=== PATIENT | male | born 1950 | race Caucasian/White ===

== ENCOUNTER 2019-04-12 19:32 | Inpatient (IN) | payer MEDICARE, BC ==
--- OUTSIDE RECORDS SUMMARY | 2019-04-12 23:32 | XMS REPORT | Summary of Care ---
:1950 Author Organization [facility] Address [address] [facility] [place] [address] Care Team Providers Name Role Phone Daniel Kamara Primary Care Provider Reason for Referral MRI/CAT/PET Scan (Routine) Status Reason Specialty Diagnoses / Procedures Referred By Referred To Contact Contact Authorized Diagnoses Acquired arteriovenous fistula (HCC) Kidney transplant recipient Zonia Florian, Procedures VL UPPER EXTREMITY DUPLEX AVFISTULA RIGHT PLACEMENT ASSISTANT [facility] [place] [address] Reason for Visit Reason Comments Chronic Kidney Disease pt. here re: right arm AV fistula w/ poss. aneurysmal area. c/o pain / ache w/ AVF. thrill & bruit noted. Kidney transplant done in July 2018. Encounter Details Date Type Department Care Team Description 02/27/2019 Office Visit BFS VASCULAR SURGERY Hollis Barros Acquired arteriovenous fistula (HCC) (Primary Dx); 7[address] Darlene Bruce MD Kidney transplant recipient [address] [place] [address] [place] [address] Allergies Active Allergy Reactions Severity Noted Date Comments Augmentin Unknown Reaction 11/05/2012 Keflex Respiratory Reaction 08/13/2015 tounge swelling & rash Penicillins Unknown Reaction 11/05/2012 documented as of this encounter (statuses as of 02/27/2019) Medications Medication Sig Dispensed Refills Start Date End Date Status mycophenolate (CELLCEPT) Take 250 mg by 0 Active 250 MG Oral Cap mouth TWICE DAILY. Tacrolimus (ENVARSUS XR) Take 2 Tabs by 0 Active 1 MG Oral TABLET SR 24 mouth TWICE HR DAILY. predniSONE (DELTASONE) 5 Take 5 mg by 0 Active MG Oral Tab mouth DAILY. Aspirin 81 MG Oral Tab Take 81 mg by 0 Active mouth. Sulfamethoxazole-Trimeth Take 0.5 Tabs by 0 Active oprim mouth THREE (SULFAMETHOXAZOLE-TMP DS TIMES PER WEEK. PO) Omeprazole 20 MG Oral Take by mouth 0 Active Tablet Delayed Release DAILY. Dispersible docusate sodium (COLACE) Take 100 mg by 0 Active 100 MG Oral Cap mouth TWICE DAILY. [place]-3 1000 MG Oral Cap Take by mouth 0 Active DAILY. doxycycline (VIBRAMYCIN) Take 100 mg by 20 Tab 0 02/22/2019 Active 100 MG Oral Tab mouth TWICE DAILY. documented as of this encounter (statuses as of 02/27/2019) Active Problems Problem Noted Date Renal failure 11/07/2012 Chest pain 11/05/2012 HTN (hypertension) 11/05/2012 Dyslipidemia 11/05/2012 Creatinine elevation 11/05/2012 documented as of this encounter (statuses as of 02/27/2019) Social History Tobacco Use Types Packs/Day Years Used Date Never Smoker 0 Smokeless Tobacco: Never Used Alcohol Use Drinks/Week oz/Week Comments No Sex Assigned at Date Recorded Not on file Job Start Date Occupation Industry Not on file Not on file Not on file Travel History Travel Start Travel End No recent travel history available. documented as of this encounter Last Filed Vital Signs Vital Sign Reading Time Taken Comments Blood Pressure 144/68 02/27/2019 10:16 AM EST Pulse 78 02/27/2019 10:16 AM EST Temperature - - Respiratory Rate - - Oxygen Saturation - - Inhaled Oxygen Concentration - - Weight 93.4 kg (206 lb) 02/27/2019 10:16 AM EST Height 180.3 cm (5' 11") 02/27/2019 10:16 AM EST Body Mass Index 28.73 02/27/2019 10:16 AM EST documented in this encounter Progress Notes Hollis Barros MD - 02/27/2019 10:00 AM EST PATIENT: Wilian Childers : 1950 DATE OF SERVICE: 02/27/2019 When I last saw patient 03/16/2015: Pt s/p 11/07/14: RIGHT BRACHIOCEPHALIC A-V FISTULA AT THE ANTECUBITAL FOSSA. THIS IS A FUNCTIONAL SIDE TO SIDE ANASTOMOSIS WITH FLOW THROUGH THE CEPHALIC VEIN. I SACRIFICED THE BASILIC VEIN AND DID AN END TO END OF BASILIC VEIN TO BRACHIAL ARTERY. OP Findings: Good size cephalic vein and brachial artery. I sacrificed the basilic vein and did an end of vein to side of artery anastomosis. There were no valves in that short segment of basilic vein so that flow went through the basilic and then up the arm through the cephalic vein and down the arm through the cephalic vein in the forearm. At the conclusion there was a good thrill in the AVF and normal palpable radial pulse with triphasic radial and ulnar dopplers .....He does note mild to moderate swelling of the arm which he wonders if it will improve with removal of the TDC and he notes that digits 3 through 5 get pale and numb sometimes in the cold. ..... It is intermittent and not constant. ...... 2+ right radial pulse, good thrill in AVF, mild to moderate swelling of the arm. 03/16/15 ultrasound of the right arm fistula indicates Good volume flow (> 1000) with no evidence of stenosis. ...... Impression/plan: The mild to moderate swelling may be relieved by removal of the same sided TDC. He has slight arterial steal with intermittent coldness of half the digits of the hand. Today patient notes that he has intermittent swelling of his right hand-- sometimes it's significant, other times much less so. The discoloration of three fingers of the hand is rare. C/o right arm shaking with eating for years , even prior to the fistula being placed. Also has some shaking in left arm but not as bad. No fever or chills. He reports the transplant team recommends not ligating fistula for 1 year s/p transplant. He had a kidney transplant in July 2018, and on 02/22/19: BUN/Cr 21/1.4 with eGFR 50 Seen in ER on 02/22/19 for swelling and redness right arm: 68-y.o.immunocompromised male with PMHx significant for ESRD s/p kidney transplant 08/18/18 (tacrolimus + Cellcept therapy), HTN, skin CA, GERD and RUE AV fistula placed 11/07/14 presenting ambulatory [facility] ED with c/o worsening redness and RUE swelling since yesterday ..... 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 Surgical consultation is recommended Patient was begun on Doxycycline for ten days for cellulitis. Exam: fistula is aneurysmal, skin quality over fistula intact with no erythema Duplex of fistula: widely patent, aneurysmal area present with thrombus seen, volume flow 1784 mL/min Impression/plan: Fistula patent. Aneurysmal area intact with no s/s of infection. Finish course of antibiotic treatment. Follow up in 6 months for recheck or sooner if other problems arise. Will discuss ligation of fistula at that time. Author: Hollis Barros MD, RVT, FACS Section of Vascular Surgery 02/27/2019 10:09 documented in this encounter Plan of Treatment Date Type Specialty Care Team Description 09/04/2019 Office Visit Vascular Surgery Hollis Barros MD [address] [address] [phone] Name Type Priority Associated Diagnoses Order Schedule VL UPPER EXTREMITY Imaging Routine Acquired arteriovenous Expected: DUPLEX AVFISTULA RIGHT fistula (HCC) 02/27/2019, Expires: Kidney transplant 04/27/2020 recipient Health Maintenance Due Date Last Done Comments MEDICARE ANNUAL WELLNESS VISIT 1950 DEPRESSION SCREENING 1962 HIV SCREENING 1965 HEPATITIS C SCREENING 1990 Colonoscopy 2000 ZOSTER IMMUNIZATION SERIES (1 2000 of 2) LIPID DISORDER SCREENING 11/06/2013 11/06/2012 FALL RISK ASSESSMENT 08/12/2015 PNEUMOCOCCAL 65+YRS (1 of 2 - 08/12/2015 PCV13) INFLUENZA VACCINE (#1) 2018 DIABETES SCREENING 02/23/2020 02/22/2019, 07/19/2013 HPV IMMUNIZATION SERIES Aged Out No longer eligible based on patient's age to complete this topic MENINGOCOCCAL VACCINE IMM Aged Out No longer eligible based on patient's age to complete this topic documented as of this encounter Results Not on filedocumented in this encounter Visit Diagnoses Diagnosis Acquired arteriovenous fistula (HCC) - Primary Arteriovenous fistula, acquired Kidney transplant recipient documented in this encounter Insurance Payer Benefit Plan / Subscriber ID Effective Dates Phone Address Type Group [employer] xxxxxxxxxxxx 2015-Present [employer] MEDICARE MEDICARE PART A & xxxxxxxxxxx 2014-Present Medicare B Guarantor Name Account Type Relation to Date of Phone Billing Patient Address Wilian Childers Personal/Family 1950 [phone] [address] ([address]) [id number] [place] (Work) [id number] documented as of this encounter
--- OUTSIDE RECORDS SUMMARY | 2019-04-12 23:33 | XMS REPORT | Summary of Care ---
:1950 Author Organization [facility] Address [address] [place] [place] [address] Care Team Providers Name Role Phone Daniel Kamara DO Primary Care Provider Reason for Visit Reason Comments Edema right arm fistula sweling Encounter Details Date Type Department Care Team Description 02/22/2019 Emergency [facility] Emergency FullerLatasha MD [address] [place], [place] [id number] Emergency Department Yolie Galvan PA [address] [place] [address] [phone] [address] [place], [place] [id number] Allergies Active Allergy Reactions Severity Noted Date Comments Augmentin Unknown Reaction 11/05/2012 Keflex Respiratory Reaction 08/13/2015 tounge swelling & rash Penicillins Unknown Reaction 11/05/2012 documented as of this encounter (statuses as of 02/23/2019) Medications Medication Sig Dispensed Refills Start Date End Date Status mycophenolate Take 250 mg 0 Active (CELLCEPT) 250 MG by mouth Oral Cap TWICE DAILY. Tacrolimus (ENVARSUS Take by 0 Active XR) 1 MG Oral TABLET mouth. SR 24 HR predniSONE Take 5 mg by 0 Active (DELTASONE) 5 MG mouth DAILY. Oral Tab Aspirin 81 MG Oral Take 81 mg 0 Active Tab by mouth. Sulfamethoxazole-Tri Take 0.5 0 Active methoprim Tabs by (SULFAMETHOXAZOLE-TM mouth THREE P DS PO) TIMES PER WEEK. Omeprazole 20 MG Take by 0 Active Oral Tablet Delayed mouth. Release Dispersible docusate sodium Take 100 mg 0 Active (COLACE) 100 MG Oral by mouth Cap TWICE DAILY. [place]-3 1000 MG Oral Take by 0 Active Cap mouth. doxycycline Take 100 mg 20 Tab 0 02/22/2019 Active (VIBRAMYCIN) 100 MG by mouth Oral Tab TWICE DAILY. Aspirin 81 MG Oral Take 81 mg 0 02/22/2019 Discontinued Tab by mouth DAILY. amLodipine (NORVASC) Take 5 mg by 0 02/22/2019 Discontinued 5 MG Oral Tab mouth EVERY EVENING. Magnesium 400 MG Take 400 mg 0 02/22/2019 Discontinued Oral Tab by mouth TWICE DAILY. metoprolol tartrate Take 25 mg 0 02/22/2019 Discontinued (LOPRESSOR) 25 mg by mouth TWICE DAILY. Calcium Carbonate Take by 0 02/22/2019 Discontinued Antacid (TUMS PO) mouth DAILY. [place]-3 Fatty Acids Take by 0 02/22/2019 Discontinued (FISH OIL) 1000 MG mouth DAILY. Oral Cap Lansoprazole 30 MG Take by 0 02/22/2019 Discontinued Oral TABLET mouth DISPERSIBLE NEEDED. sevelamer carbonate Take 800 mg 0 02/22/2019 Discontinued (RENVELA) 800 MG by mouth Oral Tab THREE TIMES DAILY WITH MEALS. documented as of this encounter (statuses as of 02/23/2019) Active Problems Problem Noted Date Renal failure 11/07/2012 Chest pain 11/05/2012 HTN (hypertension) 11/05/2012 Dyslipidemia 11/05/2012 Creatinine elevation 11/05/2012 documented as of this encounter (statuses as of 02/23/2019) Social History Tobacco Use Types Packs/Day Years Used Date Never Smoker Alcohol Use Drinks/Week oz/Week Comments No Sex Assigned at Date Recorded Not on file Job Start Date Occupation Industry Not on file Not on file Not on file Travel History Travel Start Travel End No recent travel history available. documented as of this encounter Last Filed Vital Signs Vital Sign Reading Time Taken Comments Blood Pressure 142/72 02/22/2019 3:20 PM EST Pulse 69 02/22/2019 3:20 PM EST Temperature 37.1 02/22/2019 9:57 AM EST C (98.7 F) Respiratory Rate 20 02/22/2019 3:20 PM EST Oxygen Saturation 97% 02/22/2019 3:20 PM EST Inhaled Oxygen Concentration - - Weight - - Height - - Body Mass Index - - documented in this encounter Discharge Instructions AttachmentsThe following attachments cannot be sent through Care Everywhere.Cellulitis (Skin Infection) Discharge Instructions, Adult (Frisian) Arteriovenous Fistula for Dialysis Discharge Instructions (Frisian)documented in this encounter Plan of Treatment Health Maintenance Due Date Last Done Comments DEPRESSION SCREENING 1962 HIV SCREENING 1965 HEPATITIS C SCREENING 1990 Colonoscopy 2000 ZOSTER IMMUNIZATION SERIES (1 of 2) 2000 FALL RISK ASSESSMENT 08/12/2015 PNEUMOCOCCAL 65+YRS (1 of 2 - 08/12/2015 PCV13) INFLUENZA VACCINE (#1) 2018 HPV IMMUNIZATION SERIES Aged Out No longer eligible based on patient's age to complete this topic MENINGOCOCCAL VACCINE IMM Aged Out No longer eligible based on patient's age to complete this topic documented as of this encounter Procedures Procedure Name Priority Date/Time Associated Comments Diagnosis VL UPPER EXTREMITY Routine 02/22/2019 1:10 Results for this DUPLEX VEINS RIGHT PM EST procedure are in the results section. CBC WITH DIFFERENTIAL STAT 02/22/2019 10:15 Results for this AM EST procedure are in the results section. C-REACTIVE PROTEIN STAT 02/22/2019 10:15 Results for this AM EST procedure are in the results section. COMPREHENSIVE METABOLIC STAT 02/22/2019 10:15 Results for this PANEL AM EST procedure are in the results section. PARTIAL THROMBOPLASTIN STAT 02/22/2019 10:15 Results for this TIME AM EST procedure are in the results section. documented in this encounter Results VL UPPER EXTREMITY DUPLEX VEINS RIGHT (02/22/2019 1:10 PM EST) Specimen Impressions Performed At 1. No evidence of a deep vein thrombosis from the right internal jugular through brachial veins. 2. 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 Surgical consultation is recommended. Further evaluation with a fistulogram could be performed as indicated. THIS DOCUMENT HAS BEEN ELECTRONICALLY SIGNED BY YOANA REICH MD Narrative Performed At PROCEDURE INFORMATION: Exam: US Duplex Right Upper Extremity Veins, Limited Exam date and time: 02/22/2019 12:30 PM Age: 68 years old Clinical history: Indication for study->+r/w/e; HX av fistula rue TECHNIQUE: Imaging protocol: Real-time Duplex ultrasound of the Right Upper Extremity with 2-D saravia scale, color Doppler flow and spectral waveform analysis with image documentation. Limited exam focused on the right upper extremity veins. COMPARISON: US VL UPPER EXTREMITY DUPLEX VEINS RIGHT 08/13/2015 12:55 PM FINDINGS: Right deep veins: The right internal jugular, subclavian, axillary, and brachial veins are patent. Vascular flow is seen within these veins. cephalic and basilic veins are patent. In the region of the palpable abnormality is a 7.3 x 3.4 x 2.8 cm vessel. Vascular flow is seen within this vessel however there is nonocclusive thrombus. Venous appearing Doppler flow is seen within this finding. Procedure Note Interface, Rad Results - 02/22/2019 1:54 PM EST PROCEDURE INFORMATION: Exam: US Duplex Right Upper Extremity Veins, Limited Exam date and time: 02/22/2019 12:30 PM Age: 68 years old Clinical history: Indication for study->+r/w/e; HX av fistula rue TECHNIQUE: Imaging protocol: Real-time Duplex ultrasound of the Right Upper Extremity with 2-D saravia scale, color Doppler flow and spectral waveform analysis with image documentation. Limited exam focused on the right upper extremity veins. COMPARISON: US VL UPPER EXTREMITY DUPLEX VEINS RIGHT 08/13/2015 12:55 PM FINDINGS: Right deep veins: The right internal jugular, subclavian, axillary, and brachial veins are patent. Vascular flow is seen within these veins. cephalic and basilic veins are patent. In the region of the palpable abnormality is a 7.3 x 3.4 x 2.8 cm vessel. Vascular flow is seen within this vessel however there is nonocclusive thrombus. Venous appearing Doppler flow is seen within this finding. IMPRESSION 1. No evidence of a deep vein thrombosis from the right internal jugular through brachial veins. 2. 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 Surgical consultation is recommended. Further evaluation with a fistulogram could be performed as indicated. THIS DOCUMENT HAS BEEN ELECTRONICALLY SIGNED BY YOANA REICH MD C-REACTIVE PROTEIN (02/22/2019 10:15 AM EST) C-Reactive Protein 1.00 (H) <1.00 mg/dl [facility] Specimen Blood - Blood specimen (specimen) Performing Organization Address City/State/Zipcode Phone Number [facility] [address] [place] [address] COMPREHENSIVE METABOLIC PANEL (02/22/2019 10:15 AM EST) Sodium 137 134 - 145 mmol/L [facility] Potassium 4.6 3.5 - 5.1 mmol/L [facility] Chloride 102 98 - 107 mmol/L [facility] CO2 28 22 - 30 mmol/L [facility] Calcium 10.6 (H) 8.3 - 10.1 mg/dl [facility] Albumin 4.1 3.5 - 5.0 g/dl [facility] BUN 21 (H) 9 - 20 mg/dl [facility] Creatinine 1.4 0.8 - 1.5 mg/dl [facility] Glucose 103 (H) 70 - 99 mg/dl [facility] Total Protein 7.3 6.3 - 8.2 g/dl [facility] Total Bilirubin 1.3 (H) 0.0 - 1.1 MG/DL [facility] AST 32 17 - 59 U/L [facility] ALT 25 21 - 72 U/L [facility] Alkaline 82 40 - 150 U/L [facility] eGFR 50 See Interpretation [place] Comment: Below ml/min/1.73ml [facility] Estimated GFR Interpretation: Sq LABORATORY Above 60ml/min/1.73m2 = Normal Renal Function 30-59 ml/min/1.73m2 = Stage 3 Chronic Kidney Disease 15-29 ml/min/1.73m2 = Stage 4 Chronic Kidney Disease Less than 15 ml/min/1.73m2 = Stage 5 Chronic Kidney Disease The GFR value is calculated using the Modification of Diet in Renal Disease ( MDRD) Study Equation which can be found at: https://www.kidney.org/content/ewpp-huqke-ncbeomor BUN/Creatinine 15 6 - 22 RATIO [facility] Anion Gap 7 3 - 11 mmol/L [facility] A/G Ratio 1.3 0.8 - 2.0 ratio [facility] Specimen Blood - Blood specimen (specimen) Performing Organization Address City[facility] Phone Number [facility] [address] [place] [address] PARTIAL THROMBOPLASTIN TIME (02/22/2019 10:15 AM EST) PTT 26.9Comment: 21.3 - 35.9 SEC [facility] Reference range LABORATORY updated 01/15/2019. Specimen Blood - Blood specimen (specimen) Performing Organization Address [facility] Phone Number [facility] [address] [place] [address] CBC WITH DIFFERENTIAL (02/22/2019 10:15 AM EST) WBC Count 6.62 4.23 - 9.07 K/uL [facility] RBC Count 4.38 4.30 - 5.89 M/UL [facility] Hemoglobin 14.8 13.7 - 17.5 g/dL [facility] Hematocrit 42.7 40.1 - 51.0 % [facility] MCV 97.5 (H) 79.0 - 92.2 FL [facility] MCH 33.8 (H) 25.7 - 32.[address] [facility] MCHC 34.7 32.3 - 36.5 g/dL [facility] Platelet Count 177 163 - 337 K/uL [facility] MPV 9.3 (L) 9.4 - 12.[address] [facility] RDW 13.2 11.6 - 14.4 % [facility] Neutrophil % 73.9 (H) 34.0 - 67.9 % [facility] Lymphocyte % 12.5 (L) 21.8 - 53.1 % [facility] Monocyte % 10.3 5.3 - 12.2 % [facility] Eosinophil % 2.1 0.8 - 7.0 % [facility] Basophil % 0.9 0.2 - 1.2 % [facility] Neutrophil # 4.89 1.78 - 5.38 K/UL [facility] Lymphocyte # 0.83 (L) 1.32 - 3.57 K/UL [facility] Monocyte # 0.68 0.30 - 0.82 K/UL [facility] Eosinophil # 0.14 0.04 - 0.54 K/UL [facility] Basophil # 0.06 0.01 - 0.08 K/UL [facility] Immature Gran % 0.3 0.0 - 0.4 % [facility] Immature Gran # 0.02 0.00 - 0.03 K/uL [facility] Specimen Blood - Blood specimen (specimen) Performing Organization Address City/State/Zipcode Phone Number [facility] [address] [place] [address] documented in this encounter Visit Diagnoses Diagnosis Aneurysm of arteriovenous dialysis fistula, initial encounter (HCC) - Primary Cellulitis of right upper extremity Cellulitis and abscess of upper arm and forearm documented in this encounter Administered Medications Medication Order MAR Action Action Date Dose Rate Site MOXIfloxacin (AVELOX) IV premix New Bag 02/22/2019 11:32 AM EST 400 mg 400 mg 400 mg, Intravenous, X1, 1 dose, First dose on Mon02/22/19 at 1155 vancomycin (VANCOCIN) IV mixture 1,500 New Bag 02/22/2019 1:15 PM EST 1, 500 mg mg 1,500 mg, Intravenous, X1, 1 dose, First dose on Mon02/22/19 at 1155, Typical Dose = 15 mg/kg As approved by the Infectious Disease Department, the Antimicrobial Stewardship Subcommittee, the Pharmacy and Therapeutics Committee, the [facility] Clinical Quality Committee and the [facility] ([facility], , [facility]), Vancomycin and Aminoglycoside doses will not be held while awaiting a antibiotic serum levels (peak, random, trough) unless a provider specifically places a hold order for the medication., documented in this encounter Insurance Payer Benefit Plan / Subscriber ID Effective Dates Phone Address Type Group MEDICARE MEDICARE PART A & xxxxxxxxxx 2014-Present Medicare B [employer] [facility] xxxxxxxxxxxx 2015-Present [employer] Guarantor Name Account Type Relation to Date of Phone Billing Patient Address Wilian Childers Personal/Family 1950 [phone] [address] (Home) [id number] [place] (Work) [id number] documented as of this encounter
[2019-04-12] MEDS ORDERED: Heparin DRIP 25,000 UNITS(*) 25,000 UNITS/500 ML BAG IV SCH (23:45)
[2019-04-12] MEDS ORDERED: Atorvastatin* 80 MG TAB PO ONE (23:56)
[2019-04-12] MEDS ORDERED: Aspirin EC TAB* 81 MG TAB.EC PO ONE (23:56)
[2019-04-13] MEDS ORDERED: Nitroglycerin TAB 0.4 MG* 0.4 MG TAB SL PRN (00:16)
[2019-04-13 00:31] LABS: Anion Gap 10 mmol/L (2-11); BUN/Creatinine Ratio 14.3 (8-20); Blood Urea Nitrogen 21 mg/dL (6-24); CO2 Carbon Dioxide 22 mmol/L (22-32); Calcium 10.3 mg/dL (8.6-10.3); Chloride 104 mmol/L (101-111); EGFR African American 57.6 (>60); EGFR Non-African American 47.6 (>60); Glucose 107 mg/dL (70-100); Magnesium 1.6 mg/dL (1.9-2.7); Potassium 4.1 mmol/L (3.5-5.0); Sodium 136 mmol/L (135-145)
[2019-04-13] MEDS ORDERED: Magnesium Sulfate 2 GM IV* 2 GM/50 ML BAG IVPB ONE (00:34)
[2019-04-13 00:35] LABS: Troponin I 0.09 ng/mL (<0.03)
[2019-04-13 00:54] LABS: ABS Basophils 0.1 10^3/ul (0-0.2); ABS Eosinophils 0.1 10^3/ul (0-0.6); ABS Monocytes 0.7 10^3/ul (0-0.8); ABS Neutrophils 3.5 10^3/ul (1.5-7.7); Eosinophil % 2.1 %; Hematocrit 43 % (42-52); Hemoglobin 15.1 g/dL (14.0-18.0); Lymphocyte % 19.2 %; Mean Corpuscular HGB Conc 35 g/dL (31-36); Mean Corpuscular Hemoglobin 34 pg (27-31); Mean Corpuscular Volume 96 fL (80-94); Mean Platelet Volume 8.3 fL (7.4-10.4); Nucleated Red Blood Cells % 0.1; Platelet Count 180 10^3/uL (150-450); Red Blood Count 4.49 10^6 /uL (4.18-5.48); Red Cell Distribution Width 14 % (10-15); White Blood Count 5.3 10^3/uL (3.5-10.8)
[2019-04-13] MEDS ORDERED: Heparin VIAL(*) 5000 UNITS/ML VIAL (FIVE THOUSAND) IV SCH (01:00)
--- NOTE | 2019-04-13 01:11 | HP ---
CC: Dr. Daniel Kamara; Dr. Rory Roldan, HISTORY AND PHYSICAL: DATE OF ADMISSION: 04/12/19 PRIMARY CARE PROVIDER: Dr. Daniel Kamara. CHIEF COMPLAINT: Sent from [facility] because of unstable angina, the patient has been having chest pain and shortness of breath. HISTORY OF PRESENT ILLNESS: This is a 68-year-old male with past medical history of hypertension; history of end-stage renal disease, used to be on dialysis, now is status post kidney transplant in July 2018 at the [facility], who now is in our hospital because of unstable angina. The patient was seen at the [facility] Emergency Room because of chest pain and shortness of breath. The patient reports that he has been having on and off episodes of chest pain and dyspnea on exertion for the past 1 week, he reports that the chest pain will last several minutes, relieved by rest, is usually like a pressure like sensation, which would then radiate to the arm and the back associated with shortness of breath with occasional diaphoresis. There is no associated nausea or vomiting. Currently, the patient is chest pain free. The patient was seen in the [facility] and he had blood work, EKG done subsequently, they decided to transfer the patient, they contacted Dr. Mehul Yancey as well as the hospitalist here. The patient was subsequently accepted to our facility and was transferred. Currently, the patient is chest pain free. PAST MEDICAL HISTORY: Includes: 1. Hypertension. 2. History of end-stage renal disease, used to be on dialysis. 3. History of IgA nephropathy. 4. CKD. PAST SURGICAL HISTORY: Kidney transplant in 08/18/18 at the [facility] , right sided, had a right-sided upper arm AV fistula placement. HOME MEDICATIONS: Include: 1. Colace 100 mg b.i.d. 2. CellCept/mycophenolate mofetil 500 mg twice a day. 3. Prednisone 5 mg daily. 4. Coreg 6.25 mg b.i.d. 5. Tacrolimus/Envarsus XR 2 mg daily. 6. Omeprazole 20 mg daily. 7. Marsteller-3 one tab daily. 8. Aspirin 81 mg daily. ALLERGIES: Include PENICILLIN, CLAVULANIC ACID, KEFLEX, AMOXICILLIN. FAMILY HISTORY: Mother: Heart issues, the patient does not know exactly what kind of heart issues. 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 He does not smoke. No alcohol use. REVIEW OF SYSTEMS: The patient does not have any fevers, no chills, no sore throat, no earache, no neck pain. The patient is having dyspnea on exertion, however, reports no cough. Cardiovascular: See HPI. He does not have any abdominal pain. No nausea. No vomiting. No hematuria. No dysuria. No back pain. No arthralgia. No myalgia. No rashes or lesions. No headaches. No focal weakness or numbness. No depression or anxiety. No change in his mood. PHYSICAL EXAMINATION BP: 151/66, HR: 65, RR: 18, O2; 96% on Room Air, Temp: 97.7F GENERAL: This is a well-developed, well-nourished male, lying in bed, in no acute distress. HEENT: Head: Atraumatic, normocephalic. Pupils are equal, round, reactive to light. NECK: Neck is supple with range of motion intact. There is no JVD. No thyromegaly. RESPIRATORY: There is no tachypnea, no use of accessory muscles. LUNGS: Clear without any wheezing, rales, or rhonchi. HEART: There is no chest wall tenderness. Regular rate and rhythm. There is a 2/6 systolic murmur best heard at the left upper sternal border. There are no rubs or gallops. ABDOMEN: Normoactive bowel sounds. Abdomen is soft, nontender, nondistended. EXTREMITIES: There is no lower extremity edema. No calf tenderness. AV fistula noted at the right upper extremity. NEUROLOGIC: The patient is awake, alert, and oriented x3. Tongue is midline with no facial droop. He is moving all 4 extremities without any focal weakness. SKIN: There is a scar noted at the right abdomen region site for his kidney transplant. Warm and dry. DIAGNOSTIC STUDIES/LAB DATA: Labs from our hospital is pending; however, the blood work from [facility] reveals sodium of 139, potassium of 4.6, chloride of 104, bicarb of 26, BUN of 23, creatinine of 1.6, magnesium of 1.5, alkaline phosphatase of 93. Troponin of 0.09, 0.09. BNP of 298. Serum total protein of 7.4, albumin of 2.9, WBC of 7.00, hemoglobin of 15.3, hematocrit of 44.8, RDW of 13.2. The patient had EKGs done over at [facility], one of them, time 04/02/19 at 1407 revealed sinus rhythm with nonspecific ST-T changes and EKG prior to that was done on 09/18/17 at 09:43, which revealed sinus rhythm with nonspecific ST-T changes as well. IMPRESSION AND PLAN: 1. Unstable angina: I will give the patient one dose of aspirin 162 mg, and then resume 81 mg of aspirin daily. I will give one dose of Lipitor 80 mg, followed by daily Lipitor 40 mg. Continue his carvedilol. Start the patient on a heparin drip. We will await a cardiology consultation in the morning, check an echocardiogram as well. We will cycle the troponins as well and get a repeat EKG. LDL was 113 in October 2018. Check A1c. 2. History of kidney transplant: The patient is followed by Dr. Rory Roldan, phone number is [phone]. At this point, we will continue the patient's home dose of prednisone, tacrolimus, and mycophenolate mofetil. I will get a tacrolimus level as well. It should be noted that there was hypomagnesemia noted in the lab work done at [facility]. According to the records I have in front of me, it does not appear that magnesium supplementation was given ; will obtain a repeat magnesium level and treat based on that number. 3. Chronic kidney disease with creatinine of 1.6. We will avoid any nephrotoxic agents. We will follow up repeat blood work as well. At this point , we will monitor closely. The patient does not appear to be dehydrated, so I will avoid giving IV fluids in the setting of possible unstable angina and mildly elevated BNP at the other facility. 4. DVT prophylaxis: The patient will be started on a heparin drip for unstable angina. 5. GI prophylaxis: The patient takes omeprazole, this will be continued as well. [id number]/[facility]PS #: [id number] MTDD
[2019-04-13 07:39] LABS: Troponin I 0.08 ng/mL (<0.03)
[2019-04-13] MEDS: Aspirin EC TAB* 81 MG TAB.EC PO SCH (08:09)
[2019-04-13] MEDS: Carvedilol TAB* 6.25 MG PO SCH ×2 (08:09→20:21)
[2019-04-13] MEDS: Docusate CAP* 100 MG PO SCH ×2 (08:09→20:21)
[2019-04-13] MEDS: MYCOPHENOLATE MOFETIL 250 MG PO SCH ×2 (08:12→20:21)
[2019-04-13] MEDS: TACROLIMUS 1 MG PO SCH (08:13)
[2019-04-13] MEDS: CMCS: OMEGA-3 FATTY ACIDS (NF) 1,000 MG CAP PO SCH (08:13)
[2019-04-13] MEDS: OMEPRAZOLE 20 MG PO SCH (08:14)
[2019-04-13] MEDS: amLODIPine TAB* 5 MG PO SCH (09:20)
--- NOTE | 2019-04-13 13:27 | CONS ---
CC: Dr. Daniel Kamara, [facility]. CARDIOLOGY CONSULTATION: DATE OF CONSULT: 04/13/19 INDICATION FOR CONSULTATION: Crescendo angina HISTORY OF PRESENT ILLNESS: The patient is a 68-year-old gentleman with a history of end-stage renal disease, status post renal transplant in July 2018, history of hypertension, IgA nephropathy, who cam e to the emergency room at [place] because of crescendo angina. The patient states that for the pas t week or so he has been getting bilateral posterior shoulder pain and chest pain with exertion. The patient states that yesterday he was moving around ladders and had the same discomfort, but when he rested, it took about 45 minutes for the discomfort to go away. The patient went home after work, li ed on the couch. He had some of the discomfort in the posterior shoulder areas felt as an achy feeli ng. At that time, he called his regular physician who instructed him to go to the emergency room. Th e patient at the emergency room had no ischemic EKG changes but a minimally elevated troponin level. The patient was transferred to [facility]. I had seen this patient about 2 years ago for preop for his renal transplant. At that time he had an echocardiogram and a stress echocardiogram, which were unremarkable. PAST MEDICAL HISTORY: Significant for hypertension, end-stage renal disease. OUTPATIENT MEDICATIONS: 1. CellCept 500 mg twice a day. 2. Prednisone 5 mg a day. 3. Coreg 6.25 mg a day. 4. Tacrolimus XR 2 mg a day. 5. Omeprazole 20 mg a day. 6. Aspirin 81 mg a day. Currently, the patient is on IV heparin and his other medications have been continued. ALLERGIES: PENICILLIN, CLAVULANIC ACID, KEFLEX, AMOXICILLIN. FAMILY HISTORY: Mother has a history of heart disease. SOCIAL HISTORY: He lives with his . He is a mechanical maintenance foreman. He denies tobacco or alcohol u se. REVIEW OF SYSTEMS: Negative for fevers or chills. Negative for changes in bowel or bladder habits. Negative for change in weight. Other 12-point review is unremarkable. PHYSICAL EXAM: Height is 5 feet 11 inches, weight 211 pounds, temperature 97.8, heart rate is 70, bl ood pressure 149/70, respiratory rate is 16, oxygen saturation 96% on room air. Sclerae anicteric. Oropharynx is pink without erythema. Carotids are 2+ without bruits. JVD is normal. Thyroid is norm al. Cardiac Exam: S1, S2 without any murmurs, rubs, or gallops. Lungs: Clear to auscultation bilat erally. There is no dullness to percussion. Abdomen: Soft, nontender, nondistended with normoactiv e bowel sounds. Extremities: Show no edema. He has 2+ pulses throughout. The patient is awake, al ert, and oriented. He moves all 4 extremities equally. DIAGNOSTIC STUDIES: EKG today shows normal sinus rhythm, 68 beats per minute, nonspecific T-wave abn ormalities. IMPRESSION: This is a 68-year-old gentleman with crescendo angina as described above. The patient d oes have minimally elevated troponin levels. The patient is at high risk for coronary artery disease given his end-stage renal disease. For now, my recommendation is that the patient stay on his heparin for another 24 hours. His other m edications will remain the same. He stays on aspirin 81 mg a day. I do not think any other antiplat elet agents are necessary at this time. The patient will be scheduled for an exercise nuclear stress test on Monday. The patient will also g et an echocardiogram. Further recommendations pending results of his cardiac evaluation. The patien t does have a renal transplant. The patient is at risk of renal problems given if he is to go to [facility] catheterization. This will be discussed with his transplant team. [id number]/[facility] #: [id number]
--- NOTE | 2019-04-13 13:45 | PN ---
Subjective Date of Service: 04/13/19 Interval History: Patient seen today, doing well. no fever. Discussed with Dr. Yancey. Given his chest pain nature, decided to place patient on heparin drip and proceed with stress test on Monday. Pending his stress test and echo will determine if he is candidate for cardiac cath. Patient asked to keep his transplant team updated before proceeding with cardiac cath. Please see documentation by nurse Dena Del Toro regarding his transplant team. Copied for reference purpose only: "pt's kidney transplant in [facility] [address] Roldan. bor [phone]. Ask for Nurse transplant coordinators Magan or Damien and they can help get in touch with Dr. Roldan. " Past Medical History: Unchanged from Admission Objective Active Medications: Amlodipine Besylate (Norvasc Tab*) 2.5 mg PO DAILY [facility] Last Admin: 04/13/19 09:20 Dose: 2.5 mg Aspirin (Aspirin Ec Tab*) 81 mg PO DAILY [facility] Last Admin: 04/13/19 08:09 Dose: 81 mg Atorvastatin Calcium (Lipitor*) 40 mg PO 2100 [facility] Carvedilol (Coreg Tab*) 6.25 mg PO BID [facility] Last Admin: 04/13/19 08:09 Dose: 6.25 mg Docusate Sodium (Colace Cap*) 100 mg PO BID [facility] Last Admin: 04/13/19 08:09 Dose: 100 mg Fish Oil (Fish Oil (Nf)) 1 mg PO DAILY [facility]; Protocol Last Admin: 04/13/19 08:13 Dose: 1 mg Heparin Sodium (Porcine) (Heparin Vial(*)) 0 units IV .PER PROTOCOL [facility] Last Admin: 04/13/19 01:00 Dose: 4,000 units Heparin Sodium/Dextrose (Heparin Drip 25,000 Units(*)) 25,000 units in 500 mls @ 0 mls/hr IV PER RATE [facility]; Protocol Last Admin: 04/13/19 01:02 Dose: 20 mls/hr Mycophenolate Mofetil (Cellcept Cap(*)) 500 mg PO 0800,1999 [facility] Last Admin: 04/13/19 08:12 Dose: 500 mg Nitroglycerin (Nitroglycerin Tab 0.4 Mg*) 0.4 mg SL Q5M PRN PRN Reason: ANGINA Pto: Tacrolimus [ (Envarsus Xr] 1 Mg) 2 mg PO DAILY [facility] Last Admin: 04/13/19 08:13 Dose: 2 mg Omeprazole (Prilosec Cap* (Nf)) 20 mg PO DAILY [facility] Last Admin: 04/13/19 08:14 Dose: 20 mg Prednisone (Deltasone 5 Mg Tab) 5 mg PO DAILY [facility] Last Admin: 04/13/19 08:10 Dose: 5 mg Vital Signs - 8 hr 04/13/19 04/13/19 04/13/19 07:52 08:00 09:21 Temperature 97.8 F Pulse Rate 69 67 Respiratory 16 16 Rate Blood Pressure 178/76 163/70 (mmHg) O2 Sat by Pulse 96 Oximetry 04/13/19 10:55 Temperature 97.7 F Pulse Rate 67 Respiratory 18 Rate Blood Pressure 137/62 (mmHg) O2 Sat by Pulse 98 Oximetry Oxygen Devices in Use Now: None Appearance: awake ,alert. no distress. on heparin drip Eyes: No Scleral Icterus, - - EOMI Ears/Nose/Mouth/Throat: NL Teeth, Lips, Gums, Mucous Membranes Moist Neck: NL Appearance and Movements; NL JVP, Trachea Midline Respiratory: Symmetrical Chest Expansion and Respiratory Effort, Clear to Auscultation Cardiovascular: NL Sounds; No Murmurs; No JVD, No Edema Abdominal: NL Sounds; No Tenderness; No Distention Lymphatic: No Cervical Adenopathy Extremities: No Edema Skin: No Rash or Ulcers, No Nodules or Sclerosis Neurological: Alert and Oriented x 3 Result Diagrams: 04/12/19 23:59 04/12/19 23:59 Assess/Plan/Problems-Billing Assessment: 68 y/o male recent renal transplant in 07/2018 here for chest pain with borderline troponin, required Heparin drip. Transferred from [facility] accepted by Dr. Yancey. - Patient Problems (1) Chest pain Current Visit: Yes Status: Acute Code(s): R07.9 - CHEST PAIN, UNSPECIFIED SNOMED Code(s): 83143656 Comment: - Seen by cardiology Dr. Yancey - Given his cresendo type of chest pain, started on heparin drip. Pain free - Trop peaked at 0.09. No ischemic changes on EKG - Continue coreg 6.25.mg bid - For Echo and Stress test on monday (2) Renal transplant recipient Current Visit: Yes Status: Acute Code(s): Z94.0 - KIDNEY TRANSPLANT STATUS SNOMED Code(s): 688881069 Comment: - On Cellcept and Tacrolimus, prednisone. All continued - The pt's is s/p kidney transplant in 07/2018 at [facility]. Please see documentation by nurse Dena Del Toro on admission for his transplant team informations. ("Dr. Roldan. bor [phone]. Ask for Nurse transplant coordinators Magan or Damien and they can help get in touch with Dr. Roldan.") (3) Hypertension Current Visit: Yes Status: Acute Code(s): I10 - ESSENTIAL (PRIMARY) HYPERTENSION SNOMED Code(s): 99562444 Comment: Continue coreg 6.25 mg bid Added amlodipine 2.5 mg daily given elevated BP this morning (4) IgA nephropathy Current Visit: Yes Status: Acute Code(s): N02.8 - RECURRENT AND PERSISTENT HEMATURIA W OTH MORPHOLOGIC CHANGES SNOMED Code(s): 588584548 Comment: s/p transplant (5) DVT prophylaxis Current Visit: Yes Status: Acute Code(s): Z29.9 - ENCOUNTER FOR PROPHYLACTIC MEASURES, UNSPECIFIED SNOMED Code(s): 757782012 Comment: - Currently on heparin drip
[2019-04-13] MEDS: Atorvastatin* 40 MG TAB PO SCH (20:21)
[2019-04-14 06:41] LABS: Hematocrit 44 % (42-52); Hemoglobin 15.3 g/dL (14.0-18.0); Mean Corpuscular HGB Conc 35 g/dL (31-36); Mean Corpuscular Hemoglobin 34 pg (27-31); Mean Corpuscular Volume 97 fL (80-94); Mean Platelet Volume 8.4 fL (7.4-10.4); Platelet Count 167 10^3/uL (150-450); Red Cell Distribution Width 14 % (10-15); White Blood Count 6.5 10^3/uL (3.5-10.8)
[2019-04-14 06:46] LABS: ABS Eosinophils 0.1 10^3/ul (0-0.6); ABS Lymphocytes 0.9 10^3/ul (1.0-4.8); ABS Monocytes 0.7 10^3/ul (0-0.8); ABS Neutrophils 4.8 10^3/ul (1.5-7.7); Eosinophil % 2.1 %; Lymphocyte % 14.1 %
[2019-04-14 06:48] LABS: BUN/Creatinine Ratio 18.6 (8-20); Calcium 10.1 mg/dL (8.6-10.3); EGFR Non-African American 50.4 (>60); Potassium 4.3 mmol/L (3.5-5.0)
[2019-04-14] MEDS: MYCOPHENOLATE MOFETIL 250 MG PO SCH ×2 (08:01→19:56)
[2019-04-14] MEDS: OMEPRAZOLE 20 MG PO SCH (08:01)
[2019-04-14] MEDS: Docusate CAP* 100 MG PO SCH ×2 (08:01→19:56)
[2019-04-14] MEDS: amLODIPine TAB* 5 MG PO SCH (08:02)
[2019-04-14] MEDS: Carvedilol TAB* 6.25 MG PO SCH ×2 (08:02→19:56)
[2019-04-14] MEDS: Aspirin EC TAB* 81 MG TAB.EC PO SCH (08:02)
[2019-04-14] MEDS: CMCS: OMEGA-3 FATTY ACIDS (NF) 1,000 MG CAP PO SCH (08:02)
[2019-04-14] MEDS: TACROLIMUS 1 MG PO SCH (08:03)
--- NOTE | 2019-04-14 10:50 | ECHO ---
*[facility]* [place] [address] Fax #: [phone] Transthoracic Echocardiogram Patient: Wilian Childers : 1950 Study Date: 04/14/2019 Age: 68 Gender: M HR: 69 bpm Height: 71 in /180.3 cm BSA: 2.16 m^2 Weight: 210.6 lb /95.7 kg BMI: 29.4 kg/m^2 *Double End Tenoner Operator: * Agatha Mims RDCS RN *Referring Physician: * Mehul Yancey MD *Reading Physician: * Mehul Yancey MD Indications: Chest Pain, unspecified. History: ESRD S/P renal transplant 07/2018. Risk factors: Hypertension. Conclusions Summary: - Left ventricle: Systolic function is at the lower limits of normal. The estimated ejection fraction is 50-55%. There are no regional wall motion abnormalities. - Right ventricle: Systolic function is low normal. - Mitral valve: There is trace regurgitation. - Aortic valve: The findings are consistent with mild stenosis. There is mild to moderate regurgitation. The peak systolic velocity is 2.5 m/sec. The mean systolic gradient is 14.0 mm Hg. The valve area by the velocity-time integral method is 1.49 cm^2. - Tricuspid valve: There is trace regurgitation. - Pulmonary arteries: Systolic pressure can not be accurately estimated. - Compared to study of 01/19/17, there is no change. Study data: Transthoracic echocardiogram. Procedure: Transthoracic echocardiography was performed. Image quality was fair. The study was technically limited due to body habitus. Complete 2D, spectral Doppler, and color flow Doppler. Location: Bedside. Patient status: Inpatient. Patient room number: 432. Rhythm: Normal sinus rhythm. Findings Left ventricle: The cavity size is mildly dilated. Wall thickness is mildly to moderately increased. Systolic function is at the lower limits of normal. The estimated ejection fraction is 50-55%. There are no regional wall motion abnormalities. There is no consistent Doppler evidence of clinically significant diastolic dysfunction. Right ventricle: The cavity size is mildly dilated. Systolic function is low normal. Left atrium: The atrium is moderately dilated. Right atrium: The atrium is mildly to moderately dilated. Mitral valve: The leaflets are mildly thickened. There is no evidence of stenosis. There is trace regurgitation. Aortic valve: The annulus is calcified. The valve is trileaflet. The leaflets are mild to moderately thickened with decreased excursion. The findings are consistent with mild stenosis. There is mild to moderate regurgitation. Tricuspid valve: The valve is structurally normal. There is no evidence of stenosis. There is trace regurgitation. Pulmonic valve: The valve is structurally normal. There is no evidence of stenosis. There is trace to mild regurgitation. Aorta: Aortic root: The aortic root is not dilated. Ascending aorta: The ascending aorta is not dilated. Aortic arch: The aortic arch is not dilated. Pericardium: There is no significant pericardial effusion. Pulmonary arteries: The main pulmonary artery is normal-sized. Systolic pressure can not be accurately estimated. Systemic veins: Inferior vena cava: Not well visualized. Measurements Left ventricle Value Ref Aortic valve Value Ref STEFANY, LAX (H) 6.2 cm 4.2 - 5.8 Carrillo diam, ED 2.2 cm ---- ESD, LAX (H) 4.6 cm 2.5 - 4.0 Peak v, S 2.5 m/sec ---- FS, LAX 26 % 25 - 43 VTI, S 54.5 cm ---- PW, ED (H) 1.2 cm 0.6 - 1.0 Mean grad, S 14.0 mm Hg ---- IVS/PW, ED 1.01 Peak grad, S 26.0 mm Hg ---- E', lat carrillo, TDI 11.0 cm/sec >=10.0 LVOT/AV, VTI ratio 0.43 --- - E/e', lat carrillo, 10 EDMOND, VTI 1.49 cm^2 ---- TDI EDMOND, Vmax 1.62 cm^2 ---- E', med carrillo, TDI (L) 6.3 cm/sec >=7.0 AR peak v 3.41 m/sec --- - E/e', med carrillo, 17 AR PHT 427 ms ---- TDI AR peak grad 47 mm Hg ---- E', avg, TDI 8.7 cm/sec E/e', avg, TDI 13 <=14 Mitral valve Value Ref Peak E 1.09 m/sec ---- LVOT Value Ref Peak A 0.75 m/sec ---- Diam, S 2.10 cm Decel time 225 ms ---- Area 3.5 cm^2 Peak grad, D 4.8 mm Hg ---- Peak leah, S 1.17 m/sec Peak E/A ratio 1.5 ---- VTI, S 23.4 cm Peak grad, S 5 mm Hg Pulmonic valve Value Ref Mean grad, S 3 mm Hg Peak v, S 0.99 m/sec ---- SV 89 ml Peak grad, S 4.0 mm Hg ---- SV/bsa 41 ml/m^2 Aortic root Value Ref Ventricular septum Value Ref Root diam 3.3 cm <4.3 IVS, ED, LAX (H) 1.3 cm 0.6 - 1.0 Ascending aorta Value Ref Right ventricle Value Ref AAo AP diam, S 3.5 cm ---- STEFANY, LAX 3.2 cm STEFANY minor ax, (H) 4.8 cm 1.9 - 3.5 Aortic arch Value Ref A4C mid Arch diam 3.2 cm ---- Left atrium Value Ref Decending aorta Value Ref AP dim, ES (H) 4.90 cm 3.00 - Jo-Ann peak leah 0.97 m/sec ---- 4.00 ML dim, A4C 5.2 cm SI dim, A4C 5.7 cm Vol/bsa, ES, 1-p (H) 48 ml/m^2 12 - 37 A4C Vol/bsa, ES, A/L (H) 57 ml/m^2 16 - 34 Right atrium Value Ref ML dim, ES, A4C (H) 4.8 cm 2.6 - 4.4 SI dim, ES, A4C (H) 5.6 cm 3.4 - 5.3 Legend: (L) and (H) claude values outside specified reference range. Prepared and electronically signed by Mehul Yancey MD 04/14/2019 10:49
--- NOTE | 2019-04-14 15:29 | PN ---
Subjective Date of Service: 04/14/19 Interval History: Patient seen, no events overnight. Remains on Heparin drip. I did call and I spoke to his [employer] Aide director of operations Dr. Saxena from his kidney transplant team at [facility]. Informed him of his potential need for cardiac cath pending his stress test. His recommendation to maintain IVF pre and post cath, and follow up trough level of tacrolimus level. No other recommendations. patient denies any complains. Past Medical History: Unchanged from Admission Objective Active Medications: Amlodipine Besylate (Norvasc Tab*) 2.5 mg PO DAILY [facility] Last Admin: 04/14/19 08:02 Dose: 2.5 mg Aspirin (Aspirin Ec Tab*) 81 mg PO DAILY [facility] Last Admin: 04/14/19 08:02 Dose: 81 mg Atorvastatin Calcium (Lipitor*) 40 mg PO 2100 [facility] Last Admin: 04/13/19 20:21 Dose: Not Given Carvedilol (Coreg Tab*) 6.25 mg PO BID [facility] Last Admin: 04/14/19 08:02 Dose: 6.25 mg Docusate Sodium (Colace Cap*) 100 mg PO BID [facility] Last Admin: 04/14/19 08:01 Dose: 100 mg Fish Oil (Fish Oil (Nf)) 1 mg PO DAILY [facility]; Protocol Last Admin: 04/14/19 08:02 Dose: 1 mg Heparin Sodium (Porcine) (Heparin Vial(*)) 0 units IV .PER PROTOCOL [facility] Last Admin: 04/13/19 01:00 Dose: 4,000 units Mycophenolate Mofetil (Cellcept Cap(*)) 500 mg PO 0800,2000 [facility] Last Admin: 04/14/19 08:01 Dose: 500 mg Nitroglycerin (Nitroglycerin Tab 0.4 Mg*) 0.4 mg SL Q5M PRN PRN Reason: ANGINA Pto: Tacrolimus [ (Envarsus Xr] 1 Mg) 2 mg PO DAILY [facility] Last Admin: 04/14/19 08:03 Dose: 2 mg Omeprazole (Prilosec Cap* (Nf)) 20 mg PO DAILY [facility] Last Admin: 04/14/19 08:01 Dose: 20 mg Prednisone (Deltasone 5 Mg Tab) 5 mg PO DAILY [facility] Last Admin: 04/14/19 08:02 Dose: 5 mg Vital Signs - 8 hr 04/14/19 04/14/1920 07:25 08:00 10:59 Temperature 97.7 F 97.5 F Pulse Rate 64 66 Respiratory 20 18 18 Rate Blood Pressure 145/63 139/61 (mmHg) O2 Sat by Pulse 98 100 Oximetry Oxygen Devices in Use Now: None Appearance: awake .alert. no fever or chills Eyes: No Scleral Icterus, - - EOMI Ears/Nose/Mouth/Throat: Clear Oropharnyx, Mucous Membranes Moist Neck: NL Appearance and Movements; NL JVP, Trachea Midline Respiratory: Symmetrical Chest Expansion and Respiratory Effort, Clear to Auscultation Cardiovascular: NL Sounds; No Murmurs; No JVD, No Edema Abdominal: NL Sounds; No Tenderness; No Distention Neurological: Alert and Oriented x 3 Result Diagrams: 04/14/19 06:08 04/14/19 06:08 Assess/Plan/Problems-Billing Assessment: 68 y/o male recent renal transplant in 07/2018 here for chest pain with borderline troponin, required Heparin drip. Transferred from [place] accepted by Dr. Yancey. - Patient Problems (1) Chest pain Current Visit: Yes Status: Acute Code(s): R07.9 - CHEST PAIN, UNSPECIFIED SNOMED Code(s): 01914719 Comment: - Seen by cardiology Dr. Yancey - Given his cresendo type of chest pain, started on heparin drip. Currently is Pain free - Trop peaked at 0.09. No ischemic changes on EKG - Continue coreg 6.25.mg bid - Echo EF 55% - Exercise Stress test on monday - I spoke to his [employer]ide director of operations Dr. Saxena from his kidney transplant team at [facility]. His recommendation to maintain IVF pre and post cath (if he was to go for cardiac cath) and to follow up trough level of tacrolimus level. (2) Renal transplant recipient Current Visit: Yes Status: Acute Code(s): Z94.0 - KIDNEY TRANSPLANT STATUS SNOMED Code(s): 920811202 Comment: - On Cellcept and Tacrolimus, prednisone. All continued - The pt's is s/p kidney transplant in 07/2018 at [facility]. Please see documentation by nurse Dena Del Toro on admission for his transplant team informations. (3) Hypertension Current Visit: Yes Status: Acute Code(s): I10 - ESSENTIAL (PRIMARY) HYPERTENSION SNOMED Code(s): 65060284 Comment: Continue coreg 6.25 mg bid Added amlodipine 2.5 mg daily given elevated BP this morning (4) IgA nephropathy Current Visit: Yes Status: Acute Code(s): N02.8 - RECURRENT AND PERSISTENT HEMATURIA W OTH MORPHOLOGIC CHANGES SNOMED Code(s): 919211222 Comment: s/p transplant (5) DVT prophylaxis Current Visit: Yes Status: Acute Code(s): Z29.9 - ENCOUNTER FOR PROPHYLACTIC MEASURES, UNSPECIFIED SNOMED Code(s): 582922391 Comment: - Currently on heparin drip
[2019-04-14] MEDS: Atorvastatin* 40 MG TAB PO SCH (19:53)
[2019-04-15] MEDS: Aspirin EC TAB* 81 MG TAB.EC PO SCH (07:59)
[2019-04-15] MEDS: OMEPRAZOLE 20 MG PO SCH (07:59)
[2019-04-15] MEDS: MYCOPHENOLATE MOFETIL 250 MG PO SCH ×2 (07:59→19:56)
[2019-04-15] MEDS: Docusate CAP* 100 MG PO SCH ×2 (08:00→20:03)
[2019-04-15] MEDS: Carvedilol TAB* 6.25 MG PO SCH ×3 (08:04→20:02)
[2019-04-15] MEDS: amLODIPine TAB* 5 MG PO SCH ×2 (08:04→10:49)
[2019-04-15] MEDS: CMCS: OMEGA-3 FATTY ACIDS (NF) 1,000 MG CAP PO SCH ×2 (08:13→09:36)
[2019-04-15] MEDS: TACROLIMUS 1 MG PO SCH (08:13)
[2019-04-15 12:39] LABS: BUN/Creatinine Ratio 17.3 (8-20); Calcium 10.6 mg/dL (8.6-10.3); EGFR African American 61.5 (>60); EGFR Non-African American 50.8 (>60); Potassium 4.7 mmol/L (3.5-5.0)
--- NOTE | 2019-04-15 16:45 | PN ---
Subjective Date of Service: 04/15/19 Interval History: Stress this AM with reproducible chest pain with exertion and associated EKG changes Nuclear imaging also high risk Plan for [place] tomorrow Currently CP free Past Medical History: Unchanged from Admission Objective Active Medications: Amlodipine Besylate (Norvasc Tab*) 2.5 mg PO DAILY [facility] Last Admin: 04/15/19 10:49 Dose: 2.5 mg Aspirin (Aspirin Ec Tab*) 81 mg PO DAILY [facility] Last Admin: 04/15/19 07:59 Dose: 81 mg Atorvastatin Calcium (Lipitor*) 40 mg PO 2100 [facility] Last Admin: 04/14/19 19:53 Dose: Not Given Carvedilol (Coreg Tab*) 6.25 mg PO BID [facility] Last Admin: 04/15/19 10:49 Dose: 6.25 mg Diazepam (Valium Tab(*)) 5 mg PO ONCE PRN PRN Reason: scallop cutter to [employer] Assistant Diphenhydramine HCl (Benadryl Po*) 25 mg PO ONCE PRN PRN Reason: scallop cutter to Printing [employer] Assistant Docusate Sodium (Colace Cap*) 100 mg PO BID [facility] Last Admin: 04/15/19 08:00 Dose: 100 mg Fish Oil (Fish Oil (Nf)) 1,000 mg PO DAILY [facility]; Protocol Last Admin: 04/15/19 09:36 Dose: Not Given Heparin Sodium (Porcine) (Heparin Vial(*)) 0 units IV .PER PROTOCOL [facility] Last Admin: 04/13/19 01:00 Dose: 4,000 units Sodium Chloride (Ns 0.9% 1000 Ml) 1,000 mls @ 100 mls/hr IV .per rate [facility] Mycophenolate Mofetil (Cellcept Cap(*)) 500 mg PO 799,1999 [facility] Last Admin: 04/15/19 07:59 Dose: 500 mg Nitroglycerin (Nitroglycerin Tab 0.4 Mg*) 0.4 mg SL Q5M PRN PRN Reason: ANGINA Pto: Tacrolimus [ (Envarsus Xr] 1 Mg) 2 mg PO DAILY [facility] Last Admin: 04/15/19 08:13 Dose: 2 mg Omeprazole (Prilosec Cap* (Nf)) 20 mg PO DAILY [facility] Last Admin: 04/15/19 07:59 Dose: 20 mg Prednisone (Deltasone 5 Mg Tab) 5 mg PO DAILY [facility] Last Admin: 04/15/19 08:00 Dose: 5 mg Vital Signs - 8 hr 04/15/19 04/15/19 11:26 15:19 Temperature 97.4 F 97.7 F Pulse Rate 81 67 Respiratory 20 16 Rate Blood Pressure 159/75 130/60 (mmHg) O2 Sat by Pulse 98 97 Oximetry Oxygen Devices in Use Now: None Appearance: NAD Eyes: No Scleral Icterus Ears/Nose/Mouth/Throat: NL Teeth, Lips, Gums, Clear Oropharnyx Neck: NL Appearance and Movements; NL JVP, Trachea Midline Respiratory: Symmetrical Chest Expansion and Respiratory Effort, Clear to Auscultation Cardiovascular: RRR, - - 2/6 holosystolic RAE loudest RUSB Abdominal: NL Sounds; No Tenderness; No Distention, No Hepatosplenomegaly Extremities: No Edema, - - right UE fistula Skin: No Rash or Ulcers Neurological: Alert and Oriented x 3 Result Diagrams: 04/14/19 06:08 04/15/19 12:03 Assess/Plan/Problems-Billing Assessment: 68 y/o male recent renal transplant in 07/2018 p/w chest pain found with high risk stress pending [place] 04/16. - Patient Problems (1) NSTEMI (non-ST elevated myocardial infarction) Comment: ASA, coreg, norvasc [place] planned for tomorrow s/p high risk stress after IVF in setting of renal transplant heparin gtt stopped by cardiology yesterday (2) Hypertension Comment: Continue coreg 6.25 mg bid norvasc added on presentation (3) Renal transplant recipient Comment: - Countinue Cellcept and Tacrolimus, prednisone. - The pt's is s/p kidney transplant in 07/2018 at [facility]. Please see documentation by nurse Dena Del Toro on admission for his transplant team informations. - Dr. Conley ordered trough tacro lvl which was to be drawn as outpatient today (4) DVT prophylaxis Comment: HSQ
[2019-04-15 19:12] LABS: Tacrolimus 11.1 ng/mL
[2019-04-15] MEDS: Atorvastatin* 40 MG TAB PO SCH (20:00)
[2019-04-15] MEDS: Heparin VIAL(*) 5000 UNITS/ML VIAL (FIVE THOUSAND) SUBCUT SCH (22:05)
[2019-04-15] MEDS ORDERED: NS 0.9% 1000 ML** 1,000 ML IV SCH (22:45)
[2019-04-16] MEDS: Heparin VIAL(*) 5000 UNITS/ML VIAL (FIVE THOUSAND) SUBCUT SCH (06:54)
[2019-04-16] MEDS: amLODIPine TAB* 5 MG PO SCH (07:46)
[2019-04-16] MEDS: Docusate CAP* 100 MG PO SCH ×2 (07:46→20:03)
[2019-04-16] MEDS: MYCOPHENOLATE MOFETIL 250 MG PO SCH ×2 (07:46→20:03)
[2019-04-16] MEDS: OMEPRAZOLE 20 MG PO SCH (07:46)
[2019-04-16] MEDS: Aspirin EC TAB* 81 MG TAB.EC PO SCH (07:46)
[2019-04-16] MEDS: Carvedilol TAB* 6.25 MG PO SCH ×2 (07:47→20:03)
[2019-04-16] MEDS: CMCS: OMEGA-3 FATTY ACIDS (NF) 1,000 MG CAP PO SCH (07:53)
[2019-04-16] MEDS ORDERED: diPHENhydraMINE PO* 25 MG PO PRN (08:00)
[2019-04-16] MEDS ORDERED: Diazepam TAB(*) 5 MG PO PRN (08:00)
[2019-04-16] MEDS: TACROLIMUS 1 MG PO SCH (08:03)
[2019-04-16] MEDS ORDERED: fentaNYL* 50 MCG/ML 2 ML VIAL (100 MCG VIAL) ONE (08:18)
[2019-04-16] MEDS ORDERED: Midazolam* 1 MG/ML 5 ML VIAL (5 MG) ONE (08:18)
[2019-04-16] MEDS ORDERED: Heparin 2 UNITS/ML IVPREMIX* 3,000 ML IV ONE (08:19)
[2019-04-16] MEDS ORDERED: Lidocaine 1% INJ* 10 MG/ML 30 ML SDV ONE ×2 (08:19→13:27)
[2019-04-16] MEDS ORDERED: Iodixanol 320 (CONTRAST) 100 ML SDV ONE (08:20)
[2019-04-16] MEDS ORDERED: Heparin(*) 1000 UNIT/ML 10 ML VIAL CATH LAB IV ONE ×2 (09:10→09:29)
[2019-04-16] MEDS ORDERED: Ticagrelor* 90 MG TAB PO ONE (09:11)
[2019-04-16] MEDS ORDERED: nitroGLYCERIN DRIP* 25,000 MCG/250 ML BTL ONE (09:11)
[2019-04-16] MEDS ORDERED: Nitroglycerin TAB 0.4 MG* 0.4 MG TAB SL PRN (10:07)
[2019-04-16] MEDS ORDERED: NS 0.9% 1000 ML** 400 ML IV ONE ×2 (10:15→12:45)
--- NOTE | 2019-04-16 11:24 | CATH ---
CC: Kevin Castellano; Dr. Yancey STENT REPORT: DATE OF PROCEDURE: 04/16/19 PRIMARY CARE PHYSICIAN: Dr. Kamara in [place]. CRAYON SAWYER: Dr. Yancey. PROCEDURES: 1. Stent placement to LAD 3.5 x 16 Synergy drug-eluting stent, left common femoral artery angiogram. 2. Angio-Seal left common femoral artery. HISTORY: A 68-year-old male with renal transplant, recent unstable angina. Stress imaging showed anterior wall ischemia. Diagnostic cath by Dr. Yancey demonstrated an ulcerated mid LAD stenosis, I was asked to perform intervention. PROCEDURE ACCESS: Left common femoral artery established by Dr. Yancey. INTERVENTIONAL MEDICATIONS: 1. Brilinta 180 mg p.o. loading dose. 2. Heparin 10,000 units IV total. GUIDING CATHETER: 6F VL 3.5, wire 0.014 BMW used to deploy 3.5 x 16 Synergy drug eluting stent mid LAD. It was then post dilated with a 3.5 x 15 NC balloon to 20 atmospheres for 30 seconds. Left femoral angiogram was then performed followed by Angio-Seal deployment. For diagnostic portion, see Dr. Yancey's report. ANGIOGRAPHY: The LAD is large, extends past the apex, it has a mid 80% stenosis with ulceration. After stent deployment and high pressure post dilatation, there is no significant residual stenosis. There was a step up and step down. Flow is normal. Left common femoral artery sheath entry is in segment 2, there is no stenosis. CONCLUSION: 1. Successful drug eluting stent placement, mid LAD, excellent angiographic result. 2. Successful Angio-Seal deployment left common femoral artery. [id number]/[facility] [place] #: [id number] [facility]
--- NOTE | 2019-04-16 12:38 | CATH ---
"*[facility]* [place] [address] Main: [phone] [email or web address] Cardiac Catheterization Patient: Wilian Childers : 1950 Study Date: 04/16/2019 Age: 68 Gender: M HR: Height: 71 in /180.3 cm BSA: 2.21 m^2 Weight: 211 lb /95.9 kg BMI: 29.5 kg/m^2 [employer]visor [employer]: Mehul Yancey MD Ordering Physician: Mehul Yancey MD Referring Physician: Mehul Yancey MD, Bc Leo, --- - Left coronary angiography. - Right coronary angiography. Summary: LAD: Mid-vessel lesion: There is a 95% stenosis. Recommendations: The patient should undergo coronary percutaneous coronary intervention. History: Unstable angina. Functional status: CCS class II (slight limitation of ordinary activity). Risk factors: Hypertension. Dyslipidemia. Medications: The patient received antianginal therapy in the last two weeks, including: beta blockers and calcium channel blockers. Labs, prior tests, procedures, and surgery: Stress myocardial perfusion imaging. Abnormal. High risk of ischemia. Blood tests: Troponin I (pre-procedure) of 0.08 ng/ml. International normalized ratio (INR) of 69.3. Serum potassium (K) of 4.7 mEq/l. Serum sodium (Na) of 134 mEq/l. Serum creatinine (current admission) of 1.39 mg/dl. Blood urea nitrogen of 24 mg/dl. Glucose of 111 mg/dl. Platelet count of 167 th/ul. White blood cell count (WBC) of 0.01 th/ul. Red blood cell count (RBC) of 4500 th/ul. Hematocrit of 44 %. Hemoglobin (pre-procedure) of 15.3 g/dl. Study data: Study status: Percutaneous coronary intervention: urgent. Percutaneous coronary intervention performed for high risk NSTEMI or unstable angina. Location: Catheterization laboratory. Consent: The risks, benefits, and alternatives to the procedure were explained to the patient and/or their healthcare lead customer service representative and written informed consent was obtained. All available pre-procedure labs were reviewed. Height: 180.3 cm. 71 in. Weight: 95.9 kg. 211 lb. Body surface area: 2.21 m^2. Body mass index: 29.5 kg/m^2. Procedure: 1. Initial setup. The patient was brought to the laboratory. Surface ECG leads, blood pressure measurements, and pulse oximetric signals were monitored. A baseline seven lead ECG was recorded. A time out was observed per protocol. 2. Skin preparation. The planned puncture sites were prepped and draped in the usual sterile manner. 3. Local anesthesia. 1% lidocaine was administered. 4. Local anesthesia. 1% lidocaine (10 ml) was administered to the left groin. 5. Left femoral artery access. A 6.5F Merit Prelude sheath was advanced into the vessel. 6. Selective left coronary angiography. A 6F JL 4 catheter was advanced into the left coronary vessel ostium under fluoroscopic guidance. Contrast was injected. Images were obtained in multiple projections. 7. Selective right coronary angiography. The procedure was attempted using a 6F JR 4 catheter, but proper positioning could not be achieved, and the catheter was exchanged for a 6F AR 1 MOD catheter which was advanced into the right coronary vessel ostium under fluoroscopic guidance. Contrast was injected using 2 injections. Images were obtained in multiple projections. Study completion: Minimal estimated blood loss. All catheters inserted during the procedure were removed. There were no apparent complications. Administered medications: Aspirin, 81mg, PO. Fentanyl, 25mcg, IV. VERSED (Midazolam), for a total dose of 2mg, IV. NaCl 0.9% , infusion , at a rate of 100 ml/hr. Contrast: Visipaque 100 ml (total dose). Radiation: Fluoroscopy dose: 247.5 cGy. Discharge: The patient tolerated the procedure well and was discharged from the lab in stable condition. Findings Coronary arteries: The coronary circulation is left dominant. Left main: Normal, 0% stenosis. LAD: Mid-vessel lesion: There is a 95% stenosis. This lesion appears hazy and ulcerated. Left circumflex: Normal, 0% stenosis. Right coronary: Normal, 0% stenosis. Hemodynamics: + + + |Stage description |Condition 1 -| + + + |Arterial pressure s/d (m)|156/55 (92) | + + + Prepared and electronically signed by Mehul Yancey MD 04/16/2019 12:38"
[2019-04-16] MEDS ORDERED: Atropine SYRINGE* 0.1 MG/ML 10 ML SYRINGE (1 MG) ONE (13:26)
[2019-04-16] MEDS: oxyCODONE/Acetamin 5/325 MG* TAB PO PRN ×2 (14:11→23:28)
--- NOTE | 2019-04-16 15:27 | PN ---
Subjective Date of Service: 04/16/19 Interval History: Seen post [facility]: 1 mid-LAD stent placed Patient lying flat and has some discomfort in his back from pressure other denies CP, SOB In good spirits Past Medical History: Unchanged from Admission Objective Active Medications: Amlodipine Besylate (Norvasc Tab*) 2.5 mg PO DAILY [facility] Last Admin: 04/16/19 07:46 Dose: 2.5 mg Aspirin (Aspirin Ec Tab*) 81 mg PO DAILY [facility] Last Admin: 04/16/19 07:46 Dose: 81 mg Carvedilol (Coreg Tab*) 6.25 mg PO BID [facility] Last Admin: 04/16/19 07:47 Dose: 6.25 mg Docusate Sodium (Colace Cap*) 100 mg PO BID [facility] Last Admin: 04/16/19 07:46 Dose: 100 mg Sodium Chloride (Ns 0.9% 1000 Ml) 400 mls @ 100 mls/hr IV .FOR 4 HOURS ONE Stop: 04/16/19 16:44 Last Admin: 04/16/19 12:45 Dose: 100 mls/hr Mycophenolate Mofetil (Cellcept Cap(*)) 500 mg PO 799,1999 [facility] Last Admin: 04/16/19 07:46 Dose: 500 mg Nitroglycerin (Nitroglycerin Tab 0.4 Mg*) 0.4 mg SL Q5M PRN PRN Reason: ANGINA Pto: Tacrolimus [ (Envarsus Xr] 1 Mg) 2 mg PO DAILY [facility] Last Admin: 04/16/19 08:03 Dose: 2 mg Omeprazole (Prilosec Cap* (Nf)) 20 mg PO DAILY [facility] Last Admin: 04/16/19 07:46 Dose: 20 mg Oxycodone/Acetaminophen (Percocet 5/325 Tab*) 1 tab PO Q6H PRN PRN Reason: PAIN - MODERATE Last Admin: 04/16/19 14:11 Dose: 1 tab Prednisone (Deltasone 5 Mg Tab) 5 mg PO DAILY [facility] Last Admin: 04/16/19 07:46 Dose: 5 mg Simvastatin (Zocor(Nf)) 20 mg PO BEDTIME [facility] Ticagrelor (Brilinta*) 90 mg PO BID [facility] Vital Signs - 8 hr 04/16/19 04/16/19 04/16/19 07:45 07:47 08:00 Temperature Pulse Rate Respiratory 17 17 17 Rate Blood Pressure (mmHg) O2 Sat by Pulse Oximetry 04/16/19 04/16/19 04/16/19 10:08 10:11 10:19 Temperature 97.7 F 97.7 F Pulse Rate 76 64 Respiratory 21 18 Rate Blood Pressure 150/74 153/74 (mmHg) O2 Sat by Pulse 98 98 Oximetry 04/16/19 04/16/19 04/16/19 10:23 10:38 10:46 Temperature 97.7 F 97.7 F Pulse Rate 64 63 Respiratory 20 16 Rate Blood Pressure 136/75 149/72 (mmHg) O2 Sat by Pulse 97 97 Oximetry 04/16/19 04/16/19 04/16/19 10:53 11:00 11:16 Temperature 97.7 F Pulse Rate 62 63 Respiratory 14 18 Rate Blood Pressure 153/72 146/69 (mmHg) O2 Sat by Pulse 97 98 Oximetry 04/16/19 04/16/19 04/16/19 11:23 11:30 11:45 Temperature 97.7 F Pulse Rate 61 63 Respiratory 11 18 Rate Blood Pressure 128/66 136/64 (mmHg) O2 Sat by Pulse 97 97 Oximetry 04/16/19 04/16/19 04/16/19 11:53 12:00 12:15 Temperature 99.4 F 99.4 F Pulse Rate 65 63 Respiratory 20 20 Rate Blood Pressure 154/72 131/68 (mmHg) O2 Sat by Pulse 98 98 Oximetry 04/16/19 04/16/19 04/16/19 12:30 12:45 12:53 Temperature 98.6 F Pulse Rate 67 63 Respiratory 19 17 Rate Blood Pressure 140/76 144/71 (mmHg) O2 Sat by Pulse 98 98 Oximetry 04/16/19 04/16/19 04/16/19 13:00 13:15 13:26 Temperature Pulse Rate 66 66 53 Respiratory 18 14 20 Rate Blood Pressure 149/80 123/69 106/57 (mmHg) O2 Sat by Pulse 98 99 100 Oximetry 04/16/19 04/16/19 04/16/19 13:30 13:35 13:40 Temperature Pulse Rate 71 69 69 Respiratory 20 12 17 Rate Blood Pressure 137/66 141/70 142/79 (mmHg) O2 Sat by Pulse 98 98 99 Oximetry 04/16/19 04/16/19 04/16/19 13:46 13:51 13:53 Temperature 98.6 F Pulse Rate 71 72 Respiratory 23 17 Rate Blood Pressure 151/72 153/78 (mmHg) O2 Sat by Pulse 98 98 Oximetry 04/16/19 04/16/19 04/16/19 14:00 14:06 14:10 Temperature Pulse Rate 72 69 74 Respiratory 21 23 12 Rate Blood Pressure 152/76 144/76 138/80 (mmHg) O2 Sat by Pulse 98 97 98 Oximetry 04/16/19 04/16/19 04/16/19 14:11 14:15 14:21 Temperature Pulse Rate 70 68 Respiratory 12 19 17 Rate Blood Pressure 148/74 147/78 (mmHg) O2 Sat by Pulse 98 98 Oximetry Oxygen Devices in Use Now: None Appearance: NAD Eyes: No Scleral Icterus, PERRLA Ears/Nose/Mouth/Throat: NL Teeth, Lips, Gums, Clear Oropharnyx Neck: NL Appearance and Movements; NL JVP, Trachea Midline Respiratory: Symmetrical Chest Expansion and Respiratory Effort, Clear to Auscultation Cardiovascular: RRR Abdominal: NL Sounds; No Tenderness; No Distention, No Hepatosplenomegaly Extremities: - - left groin access with pressure bag currently Neurological: Alert and Oriented x 3, - - intact Result Diagrams: 04/14/19 06:08 04/15/19 12:03 Microbiology and Other Data: Microbiology 04/16/19 10:20 Nasal Screen MRSA (PCR) - Final Nasal Mrsa Not Detected Assess/Plan/Problems-Billing Assessment: 68 y/o male recent renal transplant in 07/2018 p/w chest pain found with high risk stress s/p C 04/16 with placement of single stent to mid-LAD - Patient Problems (1) NSTEMI (non-ST elevated myocardial infarction) Comment: ASA, coreg, norvasc Brilinta added Pt has had myalgias with atorvastatin and crestor in the past. Discussed together and he is amendable to try a different statin. -simvaststain ordered (2) Hypertension Comment: Continue coreg 6.25 mg bid norvasc added on presentation (3) Renal transplant recipient Comment: - Countinue Cellcept and Tacrolimus, prednisone. - The pt is s/p kidney transplant in 07/2018 at [facility]. Please see documentation by nurse Dena Del Toro on admission for his transplant team informations. - Dr. Conley ordered trough tacro lvl which was to be drawn as outpatient today. Results relayed to patient and his today (4) DVT prophylaxis Comment: Q
[2019-04-16 15:53] LABS: Tacrolimus 7.5 ng/mL
[2019-04-16] MEDS: Ticagrelor* 90 MG TAB PO SCH (20:03)
[2019-04-16] MEDS ORDERED: CMCS:Simvastatin TAB(NF) 20 MG TAB PO SCH (21:00)
[2019-04-17 04:36] LABS: ABS Eosinophils 0.2 10^3/ul (0-0.6); ABS Lymphocytes 0.7 10^3/ul (1.0-4.8); ABS Monocytes 0.8 10^3/ul (0-0.8); Eosinophil % 2.3 %; Hematocrit 40 % (42-52); Hemoglobin 13.8 g/dL (14.0-18.0); Lymphocyte % 8.6 %; Mean Corpuscular HGB Conc 35 g/dL (31-36); Mean Corpuscular Hemoglobin 34 pg (27-31); Mean Corpuscular Volume 97 fL (80-94); Platelet Count 161 10^3/uL (150-450); Red Blood Count 4.09 10^6 /uL (4.18-5.48); Red Cell Distribution Width 13 % (10-15); White Blood Count 7.6 10^3/uL (3.5-10.8)
[2019-04-17 04:52] LABS: BUN/Creatinine Ratio 19.8 (8-20); Calcium 9.5 mg/dL (8.6-10.3); EGFR African American 72.2 (>60); EGFR Non-African American 59.6 (>60); Potassium 4.2 mmol/L (3.5-5.0)
[2019-04-17] MEDS: MYCOPHENOLATE MOFETIL 250 MG PO SCH (08:03)
[2019-04-17] MEDS: Carvedilol TAB* 6.25 MG PO SCH (08:04)
[2019-04-17] MEDS: amLODIPine TAB* 5 MG PO SCH (08:04)
[2019-04-17] MEDS: Docusate CAP* 100 MG PO SCH (08:04)
[2019-04-17] MEDS: Aspirin EC TAB* 81 MG TAB.EC PO SCH (08:04)
[2019-04-17] MEDS: Ticagrelor* 90 MG TAB PO SCH (08:05)
[2019-04-17] MEDS: TACROLIMUS 1 MG PO SCH (08:05)
--- NOTE | 2019-04-17 08:41 | PN ---
Subjective Date of Service: 04/17/19 - cresendo angina with + stress test revealing anterior ischemic s/p SABIHA/LAD Interval History: Patient had recurrent left femoral access site oozing at 2200 04/16/2019. No c/o chest pain, SOB, abdominal pain, flank pain. denies left femoral access pain at this time and offers no complaints. pressure dressing still in place. He has not been out of bed. Medications Active Medications: Amlodipine Besylate (Norvasc Tab*) 2.5 mg PO DAILY [facility] Last Admin: 04/17/19 08:04 Dose: 2.5 mg Aspirin (Aspirin Ec Tab*) 81 mg PO DAILY [facility] Last Admin: 04/17/19 08:04 Dose: 81 mg Carvedilol (Coreg Tab*) 6.25 mg PO BID [facility] Last Admin: 04/17/19 08:04 Dose: 6.25 mg Docusate Sodium (Colace Cap*) 100 mg PO BID [facility] Last Admin: 04/17/19 08:04 Dose: 100 mg Mycophenolate Mofetil (Cellcept Cap(*)) 500 mg PO [phone] [facility] Last Admin: 04/17/19 08:03 Dose: 500 mg Nitroglycerin (Nitroglycerin Tab 0.4 Mg*) 0.4 mg SL Q5M PRN PRN Reason: ANGINA Pto: Tacrolimus [ (Envarsus Xr] 1 Mg) 2 mg PO DAILY [facility] Last Admin: 04/17/19 08:05 Dose: 2 mg Omeprazole (Prilosec Cap* (Nf)) 20 mg PO DAILY [facility] Last Admin: 04/16/19 07:46 Dose: 20 mg Oxycodone/Acetaminophen (Percocet 5/325 Tab*) 1 tab PO Q6H PRN PRN Reason: PAIN - MODERATE Last Admin: 04/16/19 23:28 Dose: 1 tab Prednisone (Deltasone 5 Mg Tab) 5 mg PO DAILY [facility] Last Admin: 04/17/19 08:05 Dose: 5 mg Simvastatin (Zocor(Nf)) 20 mg PO BEDTIME [facility] Last Admin: 04/16/19 20:03 Dose: 20 mg Ticagrelor (Brilinta*) 90 mg PO BID [facility] Last Admin: 04/17/19 08:05 Dose: 90 mg Objective Vital Signs: Temp Pulse Resp BP Pulse Ox 98.7 F 64 17 136/63 96 04/17/19 07:36 04/17/19 08:00 04/17/19 08:00 04/17/19 08:00 04/17/19 08:00 Oxygen Devices in Use Now: None Appearance: Lying in bed, NAD, A+O x3. Cooperative with exam. Ears/Nose/Mouth/Throat: NL Teeth, Lips, Gums, Clear Oropharnyx Neck: NL Appearance and Movements; NL JVP, Trachea Midline Respiratory: Symmetrical Chest Expansion and Respiratory Effort, Clear to Auscultation Cardiovascular: No Edema, - - + aortic and mitral murmur, no gallop or rub. Normal S1, S2, RRR. Abdominal: NL Sounds; No Tenderness; No Distention, No Hepatosplenomegaly Extremities: No Edema, - - Left femoral access examined. no thrill. 2+ left femoral pulse, 3+ left DP pulse. No thrill, no hematoma. non tender to palpation. dressing changed. Skin: - - + ecchymosis involving left groin. Lines/Tubes/Other Access: Clean, Dry and Intact Peripheral IV Laboratory Results: 04/17/19 04:25 04/17/19 04:25 APTT 69.3 seconds (26.0-38.0) H 04/14/19 06:08 04/12/19 04/13/19 23:59 06:49 Troponin I 0.09 H* 0.08 H* Diagnostic Imaging: *[facility]* [place] [address] Fax #: [phone] Transthoracic Echocardiogram Patient: Venecia Childers : 1950 Study Date: 04/14/2019 Age: 68 Gender: M HR: 69 bpm Height: 71 in /180.3 cm BSA: 2.16 m^2 Weight: 210.6 lb /95.7 kg BMI: 29.4 kg/m^2 *Benzene Washer: * Agatha Mims CS RN *Referring Physician: * Mehul Yancey MD *Reading Physician: * Mehul Yancey MD Indications: Chest Pain, unspecified. History: ESRD S/P renal transplant 07/2018. Risk factors: Hypertension. Conclusions Summary: - Left ventricle: Systolic function is at the lower limits of normal. The estimated ejection fraction is 50-55%. There are no regional wall motion abnormalities. - Right ventricle: Systolic function is low normal. - Mitral valve: There is trace regurgitation. - Aortic valve: The findings are consistent with mild stenosis. There is mild to moderate regurgitation. The peak systolic velocity is 2.5 m/sec. The mean systolic gradient is 14.0 mm Hg. The valve area by the velocity-time integral method is 1.49 cm^2. - Tricuspid valve: There is trace regurgitation. - Pulmonary arteries: Systolic pressure can not be accurately estimated. - Compared to study of 01/19/17, there is no change. Study data: Transthoracic echocardiogram. Procedure: This report is only to be considered final once signed by the Provider(s) as displayed in the "<Electronically Signed by >" field (s). Absence of a signature indicates the report is in a draft status and still needs to be finalized. In the event this document was created by someone other than the signing Provider, the individual initiating the document will be listed in the "Entered by:" or "Dictated by:" dooley. Cardiac Catheterization Report Patient: VENECIA CHILDERS /Age: 05 1950 68 Medical Record#: [id number] Admission Date: 04/12/19 Provider: Flor Hoyos MD CC: Kevin Castellano; Dr. Yancey STENT REPORT: DATE OF PROCEDURE: 04/16/19 PRIMARY CARE PHYSICIAN: Dr. Kamara in [place]. DESULFURIZER MACHINE: Dr. Yancey. PROCEDURES: 1. Stent placement to LAD 3.5 x 16 Synergy drug-eluting stent, left common femoral artery angiogram. 2. Angio-Seal left common femoral artery. HISTORY: A 68-year-old male with renal transplant, recent unstable angina. Stress imaging showed anterior wall ischemia. Diagnostic cath by Dr. Yancey demonstrated an ulcerated mid LAD stenosis, I was asked to perform intervention. PROCEDURE ACCESS: Left common femoral artery established by Dr. Yancey. INTERVENTIONAL MEDICATIONS: 1. Brilinta 180 mg p.o. loading dose. 2. Heparin 10,000 units IV total. GUIDING CATHETER: 6F VL 3.5, wire 0.014 BMW used to deploy 3.5 x 16 Synergy drug eluting stent mid LAD. It was then post dilated with a 3.5 x 15 NC balloon to 20 atmospheres for 30 seconds. Left femoral angiogram was then performed followed by Angio-Seal deployment. For diagnostic portion, see Dr. Yancey's report. ANGIOGRAPHY: The LAD is large, extends past the apex, it has a mid 80% stenosis with ulceration. After stent deployment and high pressure post dilatation, there is no significant residual stenosis. There was a step up and step down. Flow is normal. Left common femoral artery sheath entry is in segment 2, there is no stenosis. CONCLUSION: 1. Successful drug eluting stent placement, mid LAD, excellent angiographic result. 2. Successful Angio-Seal deployment left common femoral artery. This report is only to be considered final once signed by the Provider(s) as displayed in the "<Electronically Signed by >" field (s). Absence of a signature indicates the report is in a draft status and still needs to be finalized. In the event this document was created by someone other than the signing Provider, the individual initiating the document will be listed in the "Entered by:" or "Dictated by:" dooley. 1 of 2 EKG Data: 04/17/19; sinus rhythm rate 64 with IVCD. Telemetry reviewed; Sinus rhythm rate 50-60's. Brief period of ventricular trigeminy . no VT. Assessment/Plan #1 Cresendo Angina s/p SABIHA/Mid LAD due to anterior ischemia noted on MPI. Patient had left femoral access site oozing s/p C 04/16/19. No re occurrence since 0 04/16/19. H+H are stable. No evidence of thrill, hematoma, and access site is non tender with no evidence of oozing at this time. I have asked his nurse to get him out of bed and ambulate halls. On ASA 81/day , Brilinta 90 BID. I spoke with transplant team and updated them with patient's care and that he is now on Brilinta therapy. Continue Coreg and Simvastatin therapy. follow up arranged for next week with me for re assessment of access site. #2 IgA Nephropathy s/p renal transplant 07/2018. followed by Dr. Roldan. Transplant plant team updated that patient is now on Brilinta therapy. They are requesting records be sent to them upon discharge. #3 h/o HLD; Now on Simvastatin therapy. Goal LDL < 70 #4 H/o HTN; On coreg, Norvasc therapy. BP 136/63. #5 Disposition; Patient listed as full code. He may be transferred to telemetry. I have asked that he ambulate halls. Will sign off if he continues to do well and there is no re occurrence of left femoral access site oozing. media marketing coordinator was updated in regards to new medications added to patient's regimen since admission ( Norvasc, Brilinta and Simvastatin) they are recommending repeat BMP 04/19/19 to re assess renal function given dye given during cardiac cath. Will d/w Dr. Hoyos. Attending: Flor Hoyos
[2019-04-17] MEDS: OMEPRAZOLE 20 MG PO SCH (08:47)
[2019-04-17 13:08] VITALS: BP 152/74
--- NOTE | 2019-04-17 22:00 | DS ---
CC: Dr. Daniel Kamara; Dr. Liv Bradley; Dr. Rory Roldan * DISCHARGE SUMMARY: DATE OF ADMISSION: 04/12/19 DATE OF DISCHARGE: 04/17/19 PRIMARY CARE PROVIDER: Dr. Daniel Kamara. MY ATTENDING WHILE IN THE HOSPITAL: Dr. Liv Bradley.* (DICTATED BY JHONATHAN SHOOK) OUTPATIENT FIELD CROP FARMER: Dr. Rory Roldan, . PRIMARY DISCHARGE DIAGNOSIS: [id number] myocardial infarction, LAD lesion status post drug-eluting stent placement. SECONDARY DISCHARGE DIAGNOSES: 1. 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 2. Hypertension. 3. Hyperlipidemia. STUDIES DONE WHILE IN THE HOSPITAL: Electrocardiogram from 04/13/19 shows normal sinus rhythm, no ST segment elevation or depression, no hypertrophied enlargement, normal axis. Repeat EKG shows no significant changes. Transthoracic echocardiogram from 04/13/19 read as left ventricular systolic ejection fraction in the lower limits of normal, EF 50% to 55%. Right ventricle systolic function is low normal, mitral valve with trace regurgitation. Overall findings consistent with mild stenosis and mild-to- moderate regurgitation. Tricuspid valve with trace regurgitation. Pulmonary artery systolic pressure cannot be accurately estimated compared to 01/19/17 study. There is no significant change. Nuclear medicine scan from 04/15/19 read as decreased ejection fraction with reversible perfusion defect in the anterior wall consistent with ischemia, high risk. Cardiac catheterization read as coronary circulation left dominant left main 0% stenosis, LAD mid vessel 95% stenosis, appeared hazy and ulcerated. Left circumflex normal 0% stenosis, right coronary normal 0% stenosis. Successful drug- eluting stent placement in the mid LAD with excellent angiographic result. MEDICATIONS AT DISCHARGE: 1. Amlodipine 2.5 mg p.o. daily. 2. Simvastatin 20 mg p.o. daily. 3. Nitroglycerin 0.5 mg sublingual q.5 minutes as needed for chest pain. 4. Brilinta 90 mg p.o. b.i.d. 5. Docusate 100 mg p.o. b.i.d. 6. Sulfa 500 mg p.o. b.i.d. 7. Carvedilol 6.25 mg p.o. b.i.d. 8. Prednisone 5 mg p.o. daily. 9. Omeprazole 20 mg p.o. daily. 10. Tacrolimus 2 mg p.o. daily. 11. Aspirin 81 mg p.o. daily. 12. [place]-3 fatty acid 1 cap p.o. daily. New medications on discharge: 1. Brilinta. 2. Amlodipine. 3. Nitroglycerin. 4. Simvastatin. Medications discontinued on discharge: None. HOSPITAL COURSE: This is a brief summary of the patient's presentation. For more details, please see history and physical from Dr. Tammy Spear on . In brief, the patient is a 68-year-old male with past medical history significant for the above, who presented to [facility] with 1 week of crescendoing angina particularly with exertion with accompanied shortness of breath and diaphoresis. The patient was admitted to hospital. The patient had an elevated troponin initially at 0.9 and was started on a heparin drip, able to be maintained on therapeutic PTT. While inpatient, the patient had a tacrolimus level, which was 11.1, repeat was 7.5. The patient seen in observation by Dr. Mehul Yancey, who recommended a nuclear cardiac stress test. The patient's stress test was high risk as above. The patient had a cardiac catheterization, which was read as above showing a large LAD lesion, which was stented. The patient had some ecchymosis surrounding his femoral access site; however, he had no significant hematoma and he can tolerate the Brilinta and aspirin well. The patient was started on simvastatin despite his intolerance to rosuvastatin and atorvastatin, which he seemed to tolerate well while he was in the hospital. The patient's blood pressure was slightly elevated while inpatient and he was started on amlodipine as above. The patient had slight oozing from his femoral access site, but this had resolved on the day of his discharge. The patient was stable enough for discharge on . The patient had approximately 1 L of normal saline after his catheterization to help prophylaxis against contrast-induced nephropathy and the patient's creatinine improved from 1.47 to 1.21 during his hospitalization. PHYSICAL EXAMINATION ON THE DAY OF DISCHARGE: General: The patient is a 68- year- old male who appears stated age and sitting in bed, in no acute distress. Vital Signs: At the time of evaluation, temperature 98.7, pulse rate 55, respiratory rate 16, oxygen saturation 97% on room air, blood pressure 152/74. HEENT: Head normocephalic, atraumatic. Sclerae anicteric. No conjunctival injection. Nasal mucosa moist. Oral mucosa moist. No pharyngeal erythema, discharge, or exudate. Neck: Supple, nontender. No lymphadenopathy. No carotid bruits auscultated. No JVD. Cardiac: Regular rate and rhythm. No clicks, murmurs, gallops, or rubs. Pulses 2+ in bilateral dorsalis pedis, posterior tibialis, and radial areas. Respiratory: Clear to auscultation bilaterally. No wheezes, rales, or rhonchi. Good air exchange bilaterally. Abdomen: Soft, nontender, and nondistended. Bowel sounds present, normoactive in all 4 quadrants. No hepatosplenomegaly. No abdominal bruits auscultated. No hepatojugular reflux. Genitourinary: No suprapubic or CVA tenderness. Skin : A large area of ecchymosis surrounding the left groin without palpable hematoma. Neuro: Cranial nerves II through XII intact. No focal deficits. Alert and oriented x3. Psychiatric: Pleasant, cooperative. DISCHARGE PLAN: 1. Coronary artery disease. [id number] myocardial infarction. The patient had a large left anterior descending lesion causing an elevated troponin with crescendo angina. The patient was treated as inpatient with a heparin drip and cardiac catheterization with a drug-eluting stent placement. The patient was started on Brilinta and aspirin, which he has tolerated as well as a statin. The patient was also continued on his carvedilol and to start amlodipine. The patient should follow up with Gaby Tariq NP of Cardiology as scheduled within 1 week. The patient was chest pain free with exertion during his discharge. The patient has been started on simvastatin despite intolerance to multiple statins. If he is not tolerating this, other options should be considered such as Zetia or PCSK9 inhibitors. 2. Hypertension. Continue the patient's amlodipine and carvedilol. The patient's blood pressure has been normotensive through most of the hospitalization. 3. 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 The patient will follow up closely with transplant team. The patient will have a repeat BMP on 04/19/19 per the recommendations of his transplant team. This was already sent to his transplant team in [facility]. The patient is to follow up as outpatient with them as normally scheduled unless there are abnormalities with his renal function associated with his cardiac catheterization. 4. Hyperlipidemia. The patient does not have a lipid profile that was drawn during this hospitalization. The patient was started on simvastatin. He should follow up as outpatient with his primary care provider for routine lipid profile monitoring. The patient's hemoglobin A1c was 5.8 and he should follow up with his primary care provider regarding his prediabetes as well. 5. Disposition. Home. 6. Condition. Stable. TIME SPENT: Approximately 60 minutes was spent on discharge of this patient, 30 of which was spent [id number] with the patient obtaining history and physical and discussing treatment plan. JHONATHAN SHOOK [id number]/CPS #: [id number] THOMAS
== END 2019-04-17 12:56 | disposition home or self-care (01) | DRG 174 ==
LOC: MEDTELE 23:29 → ICU 04-16 10:14
PROVIDERS: ADMIT Internal Medicine; ATTEND Internal Medicine
PROC: B2111ZZ Fluoroscopy of Multiple Coronary Arteries using Low Osmolar Contrast (ICD-10-PCS; 2019-04-16)
PROC: 027034Z Dilation of Coronary Artery, One Artery with Drug-eluting Intraluminal Device, Percutaneous Approach (ICD-10-PCS; principal; 2019-04-16 08:00)
DX: I21.4 Non-ST elevation (NSTEMI) myocardial infarction (principal); Z94.0 Kidney transplant status; I25.110 Atherosclerotic heart disease of native coronary artery with unstable angina pectoris; E78.5 Hyperlipidemia, unspecified; N18.9 Chronic kidney disease, unspecified; I12.9 Hypertensive chronic kidney disease with stage 1 through stage 4 chronic kidney disease, or unspecified chronic kidney disease; I08.1 Rheumatic disorders of both mitral and tricuspid valves; Z88.0 Allergy status to penicillin; Z88.1 Allergy status to other antibiotic agents; Z28.21 Immunization not carried out because of patient refusal; Z79.899 Other long term (current) drug therapy; Z79.82 Long term (current) use of aspirin
CPT/HCPCS: 36415; 78452; 80048; 80197; 83036; 83735; 84484; 85025; 85347; 85730; 87641; 93005; 93017; 93306; 93454; 99156; 99157; A9270-GY; A9502; C1725; C1760; C1769; C1876; C1887; C9600-LD; J0461; J1644; J2250; J3010; J3475; J7512